=== PATIENT | male | born 1995 | race Caucasian/White ===

== ENCOUNTER 2025-03-15 20:56 | Emergency (ER) | payer OTHER, SELFPAY ==
[2025-03-15 20:57] VITALS: BMI 39.0
--- NOTE | 2025-03-15 21:16 | XR_ITS ---
Examination: Foot, left, 3 views Technique: AP, oblique, lateral views foot, 3 views Date and time of exam: March 15, 2025, 2105 hrs. Indications: Patient dropped a heavy weight on the foot today, foot pain Findings: No acute fracture No dislocation No foreign body Impression: No acute fracture
[2025-03-15 21:28] VITALS: BP 131/79; PULSE 92; RESP 20; TEMP 37.2; O2SAT 96
--- NOTE | 2025-03-15 21:57 | PD.EDANKLE ---
Lower Extremity Injury RME/HPI General Chief Complaint: Ankle/Foot Injury Stated Complaint: L FOOT INJURY Time Seen by Provider: 03/15/25 21:43 Arrival date/time: 03/15/25 20:56 30M with no significant PMH presents to ED with L foot pain after something heavy fell on it. Limitations: no limitations Related Data Allergies Allergy/AdvReac Type Severity Reaction Status Date / Time cetirizine (From Zyrte) Allergy Swelling Verified 07/23/23 04:42 of Lip/Tongue/Throat ibuprofen Allergy Swelling Verified 07/23/23 04:42 of Lip/Tongue/Throat ALLERGY MEDS Allergy Uncoded 03/15/25 21:01 Review of Systems Review of Systems Systems Reviewed: All systems reviewed, normal except as documented Musculoskeletal Musculoskeletal: Reports as per HPI and Reports arthralgias Past Medical History Social History SMOKING STATUS: Never smoker ED Exam General Limitations: Present no limitations General appearance: Present alert and in no apparent distress Head Head exam: Present atraumatic Neck Neck exam: Present normal inspection, full ROM and trachea midline Chest Chest inspection: Present normal inspection and symmetric chest wall rise Extremities Exam Extremities exam: Present full ROM Expanded Lower Extremity Exam Foot/toe exam: Present full ROM (L foot; patient states is tender) and tenderness Psychiatric Psychiatric exam: Present normal affect and normal mood Skin Skin exam: Present warm, dry, intact and normal color Course Quality Measures none Orders Category Date Time Status XR foot comp LT min 3V Stat Exams 03/15/25 21:16 Completed Acetaminophen Tab [Tylenol ES Tab] Med 03/15/25 22:53 Discontinued 1,000 mg PO X1 ONE Vital Signs Vital signs: Vital Signs Temperature 98.9 F 03/15/25 21:28 Pulse Rate 92 03/15/25 21:28 Respiratory Rate 20 03/15/25 21:28 Blood Pressure 131/79 H 03/15/25 21:28 Pulse Oximetry (%) 96 03/15/25 21:28 Oxygen Delivery Method Room Air 03/15/25 21:28 O2 at 96% on RA and WNLs Extremity Injury, Lower MDM Narrative MDM Narrative:: 30M with no significant PMH presents to ED with L foot pain after something heavy fell on it. Physical exam reveals mostly intact gait. Patient states it hurts when he presses on it. Patient has crutches. Ankle ROM intact. Patient is afebrile, calm, and alert. XR no fx. Meds and addiction treatment counselor given. Patient data External records reviewed:: [facility] previous records Clinical information provided by:: patient Social determinants that could affect healthcare access:: none Patient has the following chronic illnesses:: none How is presenting disease/condition affected by chronic disease/condition?: no chronic disease Evaluation data The following diagnostics were reviewed and interpreted by me:: radiology exam(s) Lab and/or radiology exams considered but not ordered:: ordered Interpretation Summary: above Medications / Prescriptions Medications or Prescriptions considered but not ordered:: ordered Medication administrations:: Medication Administration History Discontinued Medications Acetaminophen (Acetaminophen 500 Mg Tablet) 1,000 mg PO X1 ONE Stop: 03/15/25 22:54 above Consultations Consultation(s) initiated? (list below): No Diagnosis Extremity Injury, Lower Differential Diagnosis: ankle sprain and strain, acute internal derangement of knee, puncture wound of foot, fracture of toe, ankle fracture and other (foot contusion/fx) Most likely diagnosis given after review of the tests above:: foot contusion Admission Indicated Admission indicated?: not indicated Admission Request Was there a request for admission?: No Disposition Plan Disposition Plan: Discharge Discharge Attestation Discharge Attestation: The patient and all family members were given an opportunity to ask questions and understood the discharge instructions. Discharge instructions specifically effects, indications for sooner follow up or return to the emergency department, and the expected course of current diagnosis. Patient condition: Stable Discharge Plan Plan Patient Disposition: HOME (Self Care) Discharge Disposition comment: Stable Problem List Clinical Impression: Contusion of foot Patient/Caregiver Discharge Instructions Education Materials: ED Foot Contusion Additional Instructions: Please follow-up with PCP within 24-48 hours and return immediately if symptoms worsen. If problem persists, recommend outpatient PT and/or MRI follow-up. In the meantime, rest, use ice/heat, and/or compression. Print Language: Welsh Stand Alone Forms: Patient Portal Info Letter REBA/DAYANA Supervising Physician HARLEY Supervising Physician: Dr. Melissa
[2025-03-15] MEDS: ACETAMINOPHEN 500 MG TABLET 1000 MG PO (23:24)
== END 2025-03-15 23:27 | disposition home or self-care (01) ==
LOC: SERX 23:25
PROVIDERS: Emergency Provider Emergency Medicine; PCP Nurse Practitioner Family
DX: S90.32XA Contusion of left foot, initial encounter (principal); W20.8XXA Other cause of strike by thrown, projected or falling object, initial encounter
CPT/HCPCS: 73630; 99284; A9270